=== PATIENT | female | born 1985 | race Caucasian/White ===

== ENCOUNTER 2018-01-02 14:45 | Emergency (ER) | payer OTHER ==
[2018-01-02 15:29] VITALS: BP 114/70
--- NOTE | 2018-01-02 16:06 | UC ---
Bite Injury/Animal HPI - HPI Summary HPI Summary: c/o dog bite yesterday, dog belongs to cousin and it bit her on leg and arms. She states a police report was generated and animal control has been notified. She went to [facility] and wound care was provided, started amoxil yesterday and so far has 2 doses. She states she did not get the tetanus vaccine and does not remember the last time she got it. She states she has been taking headache medication but it has not been effective in alleviating pain. Patient is tearful and states she is very anxious. She is still traumatized by the attack - History of Current Complaint Chief Complaint: UCBiteInjury Stated Complaint: DOG BITE YESTERDAY (SEEN IN [facility] ER) Time Seen by Provider: 01/02/18 15:30 Hx Obtained From: Patient Hx Last Menstrual Period: SPOTTING TODAY--PT USES THE MIRENA ?: No Severity Currently: Moderate Severity Initially: Moderate Pain Intensity: 10 Onset/Duration: Sudden Onset, Lasting Hours Type of Bite: Pet Has Animal Been Immunized?: Yes Character: Abrasion/Laceration Aggravating Factor(s): Nothing Alleviating Factor(s): Rest Associated Signs And Symptoms: Positive: Negative Hx of Bite: Provoked by: - patient entering her cousin's property, dog was unleashed. Animal Available for Observation: Yes Animal Control Notified: Yes - Risk Factors Infection/Sepsis Risk Factors: Negative - Allergies/Home Medications Allergies/Adverse Reactions: Allergies Allergy/AdvReac Type Severity Reaction Status Date / Time No Known Allergies Allergy Verified 01/25/15 08:43 Home Medications: Home Medications Acetaminophen [Extra Strength Non-Aspirin] 1,000 mg PO Q6H PRN 01/02/18 [ History Confirmed 01/02/18] Amoxicillin PO (*) [Amoxicillin 875 MG (*)] 875 mg PO BID 01/02/18 [History Confirmed 01/02/18] Aspirin/Acetaminophen/Caffeine [Excedrin Migraine Caplet] 3 each PO DAILY PRN [History Confirmed 01/02/18] Levonorgestrel (Iud) [Mirena IUD] 20 mcg IU SEE INSTRUCTIONS 01/02/18 [History Confirmed 01/02/18] PMH/Surg Hx/FS Hx/Imm Hx Previously Healthy: Yes - Surgical History Surgical History: Yes Surgery Procedure, Year, and Place: Dental Extractions - Social History Alcohol Use: None Substance Use Type: None Smoking Status (MU): Current Every Day Smoker Type: Cigarettes Amount Used/How Often: 1 PPD Length of Time of Smoking/Using Tobacco: 20 Years Have You Smoked in the Last Year: Yes Review of Systems Constitutional: Negative All Other Systems Reviewed And Are Negative: Yes Physical Exam Triage Information Reviewed: Yes Appearance: Well-Appearing, Pain Distress, Obese Vital Signs: Initial Vital Signs Temp 98.2 F 01/02/18 15:18 Pulse 98 01/02/18 15:18 Resp 16 01/02/18 15:18 BP 114/70 01/02/18 15:18 Pulse Ox 100 01/02/18 15:18 Vital Signs Reviewed: Yes Eyes: Positive: Conjunctiva Clear ENT: Positive: Hearing grossly normal Neck: Positive: Supple Respiratory: Positive: Chest non-tender Cardiovascular: Positive: Pulses Normal, Brisk Capillary Refill Skin Exam: Other - abrassions on posterolateral aspect of proximal third of right thigh, first MP area right hand, volar aspect of ulnar side right wrist and volar aspect of left arm. Left arm with bruising surrounding abrassion Bite Injury Course/Dx - Course Course Of Treatment: patient has history of dog bite, was reported to [facility]/ police department and amoxil was started. Tdap vaccine administered and pain control with ibuprofen. F/u PCP and complete course of antibiotics, oral hydration - Differential Dx/Diagnosis Provider Diagnoses: Dog bite. Anxiety Discharge - Sign-Out/Discharge Documenting (check all that apply): Discharge - Discharge Plan Condition: Stable Disposition: HOME Patient Education Materials: Tdap and Td Vaccines in Adults (ED), Ibuprofen ( By mouth), Acute Wound Care (ED) Referrals: No Primary Care Phys,NOPCP [Primary Care Provider] - [facility]] - Billing Disposition and Condition Condition: STABLE Disposition: HOME
[2018-01-02] MEDS ORDERED: Tetan/Diph/Pertus SYR(Tdap)* 0.5 ML SYR(BOOSTRIX) use SYR IM ONE (16:10)
== END 2018-01-02 16:27 | disposition home or self-care (01) ==
LOC: UCCORT 14:45
DX: S71.151D Open bite, right thigh, subsequent encounter (principal); S61.552D Open bite of left wrist, subsequent encounter; W54.0XXD Bitten by dog, subsequent encounter; Z23 Encounter for immunization; F41.9 Anxiety disorder, unspecified
CPT/HCPCS: 90471; 90715; 99212; G0463